=== PATIENT | female | born 1990 ===

== ENCOUNTER 2020-12-25 05:45 | Day surgery (SDC) | payer OTHER ==
[2020-12-25] MEDS ORDERED: MONDOXYNE NL100 MG PO (09:51)
[2020-12-25] MEDS ORDERED: NAPR500T14 PO (09:51)
== END 2020-12-25 14:36 | disposition home or self-care (01) ==
LOC: CIR.AMB 05:45
PROVIDERS: ATTEND Obstetrics & Gynecology
DX: D25.0 Submucous leiomyoma of uterus (principal); N84.0 Polyp of corpus uteri; Z20.822 Contact with and (suspected) exposure to COVID-19